=== PATIENT | male | born 1965 | race Caucasian/White ===

== ENCOUNTER → 2022-07-15 11:15 | Outpatient (BNVA) | payer BC, SELFPAY | PROVIDERS: PCP Family Medicine; Visit Provider Family Medicine | DX: E78.00 Pure hypercholesterolemia, unspecified (principal); E11.9 Type 2 diabetes mellitus without complications | CPT/HCPCS: 80053; 80061; 83036; 85025 ==

== ENCOUNTER → 2022-11-04 10:27 | Outpatient (BNVA) | payer BC, SELFPAY | PROVIDERS: PCP Family Medicine; Visit Provider Podiatrist Foot & Ankle Surgery | DX: M76.72 Peroneal tendinitis, left leg (principal); M84.374A Stress fracture, right foot, initial encounter for fracture; E11.9 Type 2 diabetes mellitus without complications; Z79.84 Long term (current) use of oral hypoglycemic drugs | CPT/HCPCS: 73630 ==

== ENCOUNTER → 2022-11-20 15:07 | Outpatient (BNVA) | payer BC, SELFPAY | PROVIDERS: PCP Family Medicine; Visit Provider Family Medicine | DX: E11.9 Type 2 diabetes mellitus without complications (principal); E66.01 Morbid (severe) obesity due to excess calories | CPT/HCPCS: 83036 ==

== ENCOUNTER 2022-12-26 09:03 | Outpatient (CLI) | payer BC, SELFPAY ==
--- NOTE | 2022-12-26 09:30 | MR_ITS ---
WS: [id number] MRI ANKLE RIGHT WITHOUT CONTRAST. COMPARISON: RIGHT foot radiographs 11/04/2022. Multiplanar, multisequence imaging is performed without contrast. No acute fracture or marrow edema. Area of interest marked is placed along the proximal fifth metatar jonny. There is no underlying osseous or soft tissue abnormality. Loss of cartilage with joint space na rrowing at the tibiotalar joint. There is a small amount of marrow edema in the lateral talar dome. T here is a small osteochondral lesion in the medial talar dome measuring 7 mm. Additional subchondral cyst in the medial malleolus measures 8 mm. Mild circumferential osteophyte development along the benton ar plafond noted anteriorly and posteriorly. There is several small loose bodies along the medial ank le mortise. These may be small avulsion fractures or loose bodies from the osteochondral lesions. The distal Achilles tendon is negative. Normal plantar aponeurosis. Subtalar joint is negative. The v isualized peroneal brevis and longus tendons are negative. Flexor houses longus, posterior tibial and flexor digitorum longus are negative. Extensor tendons are negative. No acute ligament tears. IMPRESSION: 1. No acute fracture. 2. 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 Largest osteochondral lesions from the medial malleolus and the medial talar dome along with adjacent loose bodies. 3. There are several loose bodies in the medial joint space. These may be osteochondral fragments or osseous avulsion fragments. 4. No significant joint effusion.
== END 2022-12-26 09:04 | disposition home or self-care (01) ==
PROVIDERS: PCP Family Medicine; Visit Provider Podiatrist Foot & Ankle Surgery
DX: S86.319A Strain of muscle(s) and tendon(s) of peroneal muscle group at lower leg level, unspecified leg, initial encounter (principal); M24.071 Loose body in right ankle; M25.771 Osteophyte, right ankle; X58.XXXA Exposure to other specified factors, initial encounter; Y93.9 Activity, unspecified; Y92.9 Unspecified place or not applicable; Y99.9 Unspecified external cause status
CPT/HCPCS: 73721

== ENCOUNTER → 2023-06-04 14:46 | Outpatient (BNVA) | payer BC, SELFPAY | PROVIDERS: PCP Family Medicine; Visit Provider Registered Nurse Neonatal Intensive Care | DX: R39.9 Unspecified symptoms and signs involving the genitourinary system (principal); N39.0 Urinary tract infection, site not specified | CPT/HCPCS: 81000; 87086 ==

== ENCOUNTER → 2023-07-20 13:34 | Outpatient (BNVA) | payer BC, SELFPAY | PROVIDERS: PCP Family Medicine; Visit Provider Family Medicine | DX: E11.9 Type 2 diabetes mellitus without complications (principal); E78.00 Pure hypercholesterolemia, unspecified | CPT/HCPCS: 80053; 80061; 83036; 85025 ==

== ENCOUNTER → 2024-06-02 13:46 | Outpatient (BNVA) | payer BC, SELFPAY | PROVIDERS: PCP Family Medicine; Visit Provider Family Medicine | DX: E78.00 Pure hypercholesterolemia, unspecified (principal); E11.65 Type 2 diabetes mellitus with hyperglycemia | CPT/HCPCS: 80053; 80061; 85025 ==

== ENCOUNTER → 2024-10-01 18:08 | Outpatient (BNVA) | payer BC, SELFPAY | PROVIDERS: PCP Family Medicine; Visit Provider Emergency Medicine | DX: R39.9 Unspecified symptoms and signs involving the genitourinary system (principal) | CPT/HCPCS: 81000; 87086 ==

== ENCOUNTER → 2025-01-18 09:46 | Outpatient (BNVA) | payer BC, SELFPAY | PROVIDERS: PCP Family Medicine; Visit Provider Specialist | DX: M17.11 Unilateral primary osteoarthritis, right knee (principal); E66.01 Morbid (severe) obesity due to excess calories | CPT/HCPCS: 73560; 73565 ==